=== PATIENT | female | born 1960 | race Caucasian/White ===

== ENCOUNTER 2019-01-23 19:31 | Emergency (ER) | payer OTHER ==
[~2019-01-23] VITALS: Ht 162.6 cm; Wt 111.1 kg
--- OUTSIDE RECORDS SUMMARY | ~2019-01-23 | XMS | Clinical Summary ---
Demographics + + + | Address | [address] | | | [place] [address] | + + + | Home Phone | | + + + | Preferred Language | Unknown | + + + | Marital Status | Unknown | + + + | Advent Affiliation | Unknown | + + + | Race | Unknown | + + + | Ethnic Group | Unknown | + + + Author + + + | Author | [facility] | + + + | Organization | [facility] | + + + | Address | Unknown | + + + | Phone | Unavailable | + + + Support + + + + + | Name | Relationship | Address | Phone | + + + + + | Zahida Dos Santos | ECON | [address] | | | | | [place] | | | | | [address] | | + + + + + Care Team Providers + +------+ + | Care Prorate Clerk Name | Role | Phone | + +------+ + | Lee Anderson | PP | | + +------+ + Allergies + + + + + + | Active Allergy | Reactions | Severity | Noted | Comments | | | | | Date | | + + + + + + | Hydromorphone | Nausea and Vomiting | Low | 06/25/20 | | | | | | 18 | | + + + + + + | Erythromycin | Hives | High | 06/25/20 | | | | | | 18 | | + + + + + + | Gabapentin | Other (See Comments) | Medium | 06/25/20 | Med interaction | | | | | 18 | -causes | | | | | | aggressiveness. | + + + + + + | Morphine And Related | Nausea and Vomiting | Low | 06/25/20 | | | | | | 18 | | + + + + + + | Penicillins | Other (See Comments) | Medium | 06/25/20 | Unknown | | | | | 18 | | + + + + + + | Sulfamethoxazole-Tri | Anaphylaxis | High | 06/25/20 | | | methoprim | | | 18 | | + + + + + + Current Medications + + +-------+---------+------+------+-------+ | Prescription | Sig. | Disp. | Refills | Star | End | Statu | | | | | | t | Date | s | | | | | | Date | | | + + +-------+---------+------+------+-------+ | lurasidone | Take 120 mg by mouth | | | | | Activ | | (LATUDA) 120 MG | daily. T | | | | | e | | tablet | | | | | | | + + +-------+---------+------+------+-------+ | | Take 500 mg by mouth | | | | | Activ | | Vqrthgk-Yexuvxoag-Ed | 2 (two) times | | | | | e | | tamin D (CALCIUM 500 | daily. | | | | | | | PO) | | | | | | | + + +-------+---------+------+------+-------+ | pramipexole | Take 1 mg by mouth 3 | | | | | Activ | | (MIRAPEX) 1 MG | (three) times | | | | | e | | tablet | daily. | | | | | | + + +-------+---------+------+------+-------+ | metFORMIN | Take 500 mg by mouth | | | | | Activ | | (GLUCOPHAGE) 500 MG | 3 (three) times | | | | | e | | tablet | daily. | | | | | | + + +-------+---------+------+------+-------+ | lamoTRIgine | Take 25 mg by mouth | | | | | Activ | | (LAMICTAL) 25 MG | daily. | | | | | e | | tablet | | | | | | | + + +-------+---------+------+------+-------+ | albuterol | Inhale 2 puffs into | | | | | Activ | | (PROVENTIL | the lungs every 4 | | | | | e | | HFA;VENTOLIN HFA) | (four) hours as | | | | | | | 108 (90 Base) | needed for Wheezing. | | | | | | | MCG/ACT inhaler | | | | | | | + + +-------+---------+------+------+-------+ | spironolactone | Take 25 mg by mouth | | | | | Activ | | (ALDACTONE) 25 MG | daily. | | | | | e | | tablet | | | | | | | + + +-------+---------+------+------+-------+ | omeprazole | Take 40 mg by mouth | | | | | Activ | | (PRILOSEC) 40 MG | daily. | | | | | e | | capsule | | | | | | | + + +-------+---------+------+------+-------+ | metoprolol | Take 25 mg by mouth | | | | | Activ | | (TOPROL-XL) 25 MG 24 | daily. | | | | | e | | hr tablet | | | | | | | + + +-------+---------+------+------+-------+ | ergocalciferol | Take 50,000 Units by | | | | | Activ | | (DRISDOL) 30230 | mouth once a week. | | | | | e | | units capsule | | | | | | | + + +-------+---------+------+------+-------+ | methocarbamol | Take 750 mg by mouth | | | | | Activ | | (ROBAXIN) 500 MG | 2 (two) times daily | | | | | e | | tablet | as needed. | | | | | | + + +-------+---------+------+------+-------+ | cyclobenzaprine | Take 10 mg by mouth | | | | | Activ | | (FLEXERIL) 10 MG | 3 (three) times | | | | | e | | tablet | daily as needed for | | | | | | | | Muscle spasms. | | | | | | + + +-------+---------+------+------+-------+ Active Problems + + + | Problem | Noted Date | + + + | CKD (chronic kidney disease), stage III (HCC) | 06/28/2018 | + + + | Essential (primary) hypertension | 06/28/2018 | + + + | Class 1 obesity with alveolar hypoventilation without serious | 06/28/2018 | | comorbidity with body mass index (BMI) of 34.0 to 34.9 in adult | | | (HCC) | | + + + | Type 2 diabetes mellitus with diabetic nephropathy, without | 06/28/2018 | | long-term current use of insulin (HCC) | | + + + | Tobacco abuse | 06/28/2018 | + + + Immunizations + + + + | Name | Dates Previously Given | Next Due | + + + + | Pneumococcal | 08/14/2015 | | | Polysaccharide | | | | 23-valent | | | + + + + Family History + + +------+ + | Medical History | Relation | Name | Comments | + + +------+ + | Cancer | Sister | | Ovarian | + + +------+ + + +------+ + + | Relation | Name | Status | Comments | + +------+ + + | Father | | Alive | | + +------+ + + | Mother | | | | + +------+ + + | Sister | | | | + +------+ + + Social History + +-------+ +--------+------+ | Tobacco Use | Types | Packs/Day | Years | Date | | | | | Used | | + +-------+ +--------+------+ | Current Every Day | | 0.5 | | | | Smoker | | | | | + +-------+ +--------+------+ + + +---------+ + | Alcohol Use | Drinks/We | oz/Week | Comments | | | ek | | | + + +---------+ + | Yes | | | | + + +---------+ + + + + | Sex Assigned at | Date Recorded | | | | + + + | Not on file | | + + + Last Filed Vital Signs + + + + | Vital Sign | Reading | Time Taken | + + + + | Blood Pressure | 90/56 | 09/15/2018 11:45 AM PST | + + + + | Pulse | 75 | 09/15/2018 11:45 AM PST | + + + + | Temperature | - | - | + + + + | Respiratory Rate | - | - | + + + + | Oxygen Saturation | 97% | 09/15/2018 11:45 AM PST | + + + + | Inhaled Oxygen | - | - | | Concentration | | | + + + + | Weight | 121.9 kg (268 lb | 09/15/2018 11:45 AM PST | | | 12.8 oz) | | + + + + | Height | 162.6 cm (5' 4") | 09/15/2018 11:45 AM PST | + + + + | Body Mass Index | 46.14 | 09/15/2018 11:45 AM PST | + + + + Plan of Treatment +--------+---------+ + + + | Date | Type | Specialty | Care Team | Description | +--------+---------+ + + + | 03/25/ | Office | | Junior Henry, | | | 2019 | Visit | | [facility] | | | | | | [address] | | | | | | [place] [id number] | | | | | | [phone] | | | | | | | | +--------+---------+ + + + + + + + + | Health Maintenance | Due Date | Last Done | Comments | + + + + + | Diabetic Eye Exam | | | | | | 0 | | | + + + + + | Diabetic Foot Exam | | | | | | 0 | | | + + + + + | Vaccine: | | | | | Dtap/Tdap/Td (1 - | 9 | | | | Tdap) | | | | + + + + + | Cervical Cancer | | | | | Screening (Pap) | 0 | | | + + + + + | Breast Cancer | | | | | Screening | 0 | | | | (Mammogram) | | | | + + + + + | Colon Cancer | | | | | Screening | 0 | | | | (Colonoscopy) | | | | + + + + + | Vaccine: Zoster (1 | | | | | of 2) | 0 | | | + + + + + | Statin Therapy | | | | | (optimal intensity) | 8 | | | + + + + + | Hemoglobin A1c | | 04/23/2018 | | | | 9 | | | + + + + + | Vaccine: Influenza | | | | | (Season Ended) | 9 | | | + + + + + | Vaccine: | Completed | 08/14/2015 | | | Pneumococcal 19-64 | | | | | (PPSV23 only) Medium | | | | | Risk | | | | + + + + + Results Not on filefrom Last 3 Months Insurance + +--------+ +------+-------+ + | Payer | Benefi | Subscriber | Type | Phone | Address | | | t Plan | ID | | | | | | / | | | | | | | Group | | | | | + +--------+ +------+-------+ + | MEDICAID | [employer] | [id number] | | | [address] | | | [address] | | | | [place], [place] | | | [place] | | | | [phone] | | | 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
--- OUTSIDE RECORDS SUMMARY | ~2019-01-23 | XMS | Clinical Summary ---
Demographics + + + | Address | [address] | | | [place] [address] | + + + | Home Phone | | + + + | Preferred Language | Unknown | + + + | Marital Status | Unknown | + + + | Zoroastrian Affiliation | Unknown | + + + | Race | Unknown | + + + | Ethnic Group | Unknown | + + + Author + + + | Author | [facility] | + + + | Organization | [facility] | + + + | Address | Unknown | + + + | Phone | Unavailable | + + + Support + + + + + | Name | Relationship | Address | Phone | + + + + + | Zahida Dos Santos | ECON | [address] | | | | | [place] | | | | | [address] | | + + + + + Care Team Providers + +------+ + | Care Dehorner Name | Role | Phone | + [...] | | | | Activ | | Dsirsem-Ftplhxscx-Fe | 2 (two) times | | | [...] | | | Activ | | (DRISDOL) [address] | mouth once a week. | | [...] | | | | | [place] [address] | | | | | | [phone] | | | | | | | [...] +------+-------+ + | MEDICAID | [employer] | [id number] | | | [address] | | | N | | | | [place], [place] | | | [place] | | | | [phone] | | | [employer] SUPER[employer]OR | | | | | + +--------+ [...] | 1960 | [phone] | [place] [address] | | | [place] | | | [phone] | | + +--------+ +--------+ + +
[~2019-01-23 19:31] MED LIST: BACLOFEN10 MG PO; BETAMETHASONE D15 G2 TOP; CLINDAMYCIN HC150 MG PO; DOXYCYCLINE HY100 MG PO; LAMICTAL25 MG PO; LEVOTHYROXINE50 MCG PO; METFORMIN HCL500 MG PO; METOPROLOL TART25 MG PO; NORTRIPTYLINE H25 MG PO; OMEPRAZOLE20 MG PO; PRAMIPEXOLE PO; ROBAXIN-750750 MG PO; SPIRONOLACTONE25 MG PO; TRAMADOL HCL50 MG PO; ZANAFLEX4 MG PO; ZOFRAN ODT4 MG PO
--- NOTE | 2019-01-24 06:47 | EKG ---
[facility] [address] [place], [place] [address] Signed Sinus tachycardia Otherwise normal ECG No previous ECGs available Confirmed by LOYD MAYO MD ([id number]) on 01/24/2019 6:46:59 AM Electronically Signed By: LOYD MAYO MD 01/24/19 0647 PATIENT NAME: ZAHIDA DOS SANTOS Electrocardiogram DATE OF : 60 PHYSICIAN: LOYD MAYO MD REPORT #: [id number] REPORT IS CONFIDENTIAL AND NOT TO BE RELEASED WITHOUT AUTHORIZATION
== END 2019-01-23 22:21 | disposition home or self-care (01) ==
LOC: ED 19:31
DX: F15.90 Other stimulant use, unspecified, uncomplicated (principal); E11.9 Type 2 diabetes mellitus without complications; I10 Essential (primary) hypertension; F32.9 Major depressive disorder, single episode, unspecified; F41.9 Anxiety disorder, unspecified; Z88.6 Allergy status to analgesic agent; Z88.5 Allergy status to narcotic agent; Z88.1 Allergy status to other antibiotic agents; Z88.0 Allergy status to penicillin; Z79.899 Other long term (current) drug therapy
CPT/HCPCS: 71045; 80053; 81001; 83735; 84484; 85025; 93005; 93010; 96361; 96374; 99285-25; G0480; J2060; J7030

== ENCOUNTER 2021-03-20 20:43 | Emergency (ER) | payer OTHER ==
[~2021-03-20] VITALS: Ht 162.6 cm; Wt 121.3 kg
[2021-03-20] MEDS ORDERED: CYCLOBENZAPRINE10 MG PO (20:58)
[2021-03-20] MEDS ORDERED: FERROUS SULFAT325 MG PO (20:59)
[2021-03-20] MEDS ORDERED: LATUDA120 MG PO (20:59)
[2021-03-20] MEDS ORDERED: LAMICTAL200 MG PO (20:59)
[2021-03-20] MEDS ORDERED: REQUIP3 MG PO (21:00)
[2021-03-20] MEDS ORDERED: VITAMIN D31250 MC1 PO (21:01)
== END 2021-03-20 22:37 | disposition home or self-care (01) ==
LOC: ED 20:43
DX: G43.909 Migraine, unspecified, not intractable, without status migrainosus (principal); E11.9 Type 2 diabetes mellitus without complications; G47.30 Sleep apnea, unspecified; I10 Essential (primary) hypertension; F17.200 Nicotine dependence, unspecified, uncomplicated; Z88.6 Allergy status to analgesic agent; Z88.5 Allergy status to narcotic agent; Z88.2 Allergy status to sulfonamides; Z88.0 Allergy status to penicillin; Z79.899 Other long term (current) drug therapy; Z79.84 Long term (current) use of oral hypoglycemic drugs
CPT/HCPCS: 96374; 96375; 99283-25; J0780; J1100; J1200; J1885; J7030

== ENCOUNTER 2021-04-29 17:08 | Emergency (ER) | payer OTHER ==
[~2021-04-29] VITALS: Ht 162.6 cm; Wt 124.7 kg
[~2021-04-29 17:08] MED LIST changes: +CYCLOBENZAPRINE10 MG PO; +FERROUS SULFAT325 MG PO; +LAMICTAL200 MG PO; +LATUDA120 MG PO; +REQUIP3 MG PO; +VITAMIN D31250 MC1 PO
[2021-04-29] MEDS ORDERED: CEPHALEXIN500 M1 PO (18:46)
== END 2021-04-29 19:08 | disposition home or self-care (01) ==
LOC: ED 17:08
DX: N39.0 Urinary tract infection, site not specified (principal); E11.9 Type 2 diabetes mellitus without complications; F17.200 Nicotine dependence, unspecified, uncomplicated; Z88.8 Allergy status to other drugs, medicaments and biological substances; Z88.2 Allergy status to sulfonamides; Z88.1 Allergy status to other antibiotic agents; Z88.6 Allergy status to analgesic agent; Z79.899 Other long term (current) drug therapy
CPT/HCPCS: 81001; 99284

== ENCOUNTER 2024-03-20 14:02 | Emergency (ER) | payer OTHER ==
[~2024-03-20] VITALS: Ht 162.6 cm; Wt 125.0 kg
[~2024-03-20 14:02] MED LIST changes: +CEPHALEXIN500 M1 PO; +TRAMADOL HCL100 M2 PO
[2024-03-20] MEDS ORDERED: TRAMADOL HCL50 MG PO (14:45)
[2024-03-20] MEDS ORDERED: TRAMADOL HCL 50 MG TAB PO ONE (14:45)
[2024-03-20 14:54] VITALS: BP 119/66
== END 2024-03-20 14:53 | disposition home or self-care (01) ==
LOC: ED 14:02
DX: M25.562 Pain in left knee (principal); M23.307 Other meniscus derangements, unspecified meniscus, left knee; I10 Essential (primary) hypertension; E11.9 Type 2 diabetes mellitus without complications; L40.9 Psoriasis, unspecified; J44.9 Chronic obstructive pulmonary disease, unspecified; G25.81 Restless legs syndrome; E66.9 Obesity, unspecified; Z68.42 Body mass index [BMI] 45.0-49.9, adult; F17.200 Nicotine dependence, unspecified, uncomplicated; Z88.6 Allergy status to analgesic agent; Z88.5 Allergy status to narcotic agent; Z88.1 Allergy status to other antibiotic agents; Z88.0 Allergy status to penicillin; Z79.84 Long term (current) use of oral hypoglycemic drugs; Z79.899 Other long term (current) drug therapy
CPT/HCPCS: 99283

== ENCOUNTER 2024-07-15 13:54 | Emergency (ER) | payer OTHER ==
[~2024-07-15] VITALS: Ht 162.6 cm; Wt 115.0 kg
[2024-07-15] MEDS ORDERED: TRULICITY1.5 MG/0.5 SQ (14:07)
[2024-07-15] MEDS ORDERED: KETOROLAC TROMETHAMINE 60 MG/2 ML VIAL IM ONE (14:30)
[2024-07-15] MEDS ORDERED: diazePAM 5 MG TAB PO ONE (14:30)
[2024-07-15] MEDS ORDERED: LIDOCAINE HCL 4% 1 EACH PATCH TD ONE (14:30)
[2024-07-15] MEDS ORDERED: LIDODERM1 EACH TOP (16:22)
[2024-07-15] MEDS ORDERED: CYCLOBENZAPRINE10 MG PO (16:22)
[2024-07-15] MEDS ORDERED: KETOROLAC TROME10 MG PO (16:22)
[2024-07-15 16:37] VITALS: BP 156/95
[2024-07-15] MEDS ORDERED: LIDOCAINE PATCH REMOVAL 1 EA TD SCH (21:00)
== END 2024-07-15 16:38 | disposition home or self-care (01) ==
LOC: ED 13:54
DX: M25.552 Pain in left hip (principal); M16.0 Bilateral primary osteoarthritis of hip; E11.9 Type 2 diabetes mellitus without complications; I10 Essential (primary) hypertension; J44.9 Chronic obstructive pulmonary disease, unspecified; F17.200 Nicotine dependence, unspecified, uncomplicated; Z88.5 Allergy status to narcotic agent; Z88.0 Allergy status to penicillin; Z79.899 Other long term (current) drug therapy
CPT/HCPCS: 73502; 96372; 99283-25; A9270; J1885

== ENCOUNTER 2025-02-03 12:22 | Emergency (ER) | payer OTHER ==
[~2025-02-03] VITALS: Ht 162.6 cm; Wt 130.5 kg
[~2025-02-03 12:22] MED LIST changes: +KETOROLAC TROME10 MG PO; +LIDODERM1 EACH TOP; +TRULICITY1.5 MG/0.5 SQ
[2025-02-03] MEDS ORDERED: ONDANSETRON 4 MG TAB ODT SL ONE (13:00)
[2025-02-03] MEDS ORDERED: HYDROCODONE/ACETA 5/325 TAB PO ONE (13:00)
[2025-02-03 13:26] LABS: BILIRUBIN, URINE NEGATIVE (negative); BLOOD/HGB, URINE TRACE-I (Negative); KETONE, URINE NEGATIVE (Negative); LEUK ESTERASE, URINE NEGATIVE (negative); NITRITE, URINE POSITIVE (negative)
[2025-02-03 13:33] LABS: BACTERIA, URINE 3+ /hpf (negative); CASTS, URINE NONE SEEN \\lpf; COLLECTION TYPE, URINE CLEAN CATCH; CRYSTALS, URINE NONE SEEN (0-1+); EPITHELIAL CELLS, URINE SQUAMOUS 1+ /lpf (0-1+); RED BLOOD CELLS, URINE 0-1 /hpf (0-5); REFLEX CULTURE, URINE Yes (No)
[2025-02-03 13:35] LABS: BASOPHILS 0.7 % (0-2); EOSINOPHILS 2.7 % (0-6); HEMATOCRIT 45.9 % (35.0-50.0); LYMPHOCYTES 27.7 % (24-44); MCH 29.4 (27-36); MCHC 34.7 g/dl (30-36); MCV 84.6 fl (81-99); MONOCYTES 6.7 % (0-12); NEUTROPHILS 62.2 % (39-80); PLATELET COUNT 336 K/uL (140-440); RBC 5.43 M/ul (4.3-5.7); RDW 14.7 (10.5-15.0)
[2025-02-03 13:53] LABS: ALBUMIN 3.2 g/dL (3.4-5.0); ALBUMIN/GLOBULIN RATIO 0.74 (1.1-2.4); ANION GAP 11.8 (7-21); BILIRUBIN, TOTAL 0.5 mg/dL (0.2-1.0); BUN/CREATININE RATIO 4.96 (6.0-28.6); CALCIUM 8.5 mg/dL (8.5-10.1); CREATININE, SERUM 1.41 mg/dL (0.55-1.02); POTASSIUM 3.8 mmol/L (3.5-5.1); PROTEIN, TOTAL 7.5 g/dL (6.4-8.2)
[2025-02-03] MEDS ORDERED: predniSONE 20 MG TAB PO ONE (16:30)
[2025-02-03] MEDS ORDERED: PREDNISONE20 MG PO (16:30)
[2025-02-03] MEDS ORDERED: HYDROCODON-ACE1 EA10 PO (16:30)
[2025-02-03] MEDS ORDERED: CEPHALEXIN500 M1 PO (16:30)
[2025-02-03] MEDS ORDERED: CEPHALEXIN MONOHYDRATE 500 MG CAP PO ONE (16:30)
[2025-02-03] MEDS ORDERED: ANORO ELLIPTA1 EACH INH (16:40)
[2025-02-03 16:44] VITALS: BP 145/94
== END 2025-02-03 16:44 | disposition home or self-care (01) ==
LOC: ED 12:22
PROVIDERS: Emergency Medicine
DX: M54.31 Sciatica, right side (principal); N39.0 Urinary tract infection, site not specified; E11.9 Type 2 diabetes mellitus without complications; I10 Essential (primary) hypertension; F17.200 Nicotine dependence, unspecified, uncomplicated
CPT/HCPCS: 36415; 80053; 81001; 83690; 85025; 87077; 87088; 99284; A9270; J7512

== ENCOUNTER 2025-07-20 13:29 | Emergency (ER) | payer MEDICARE, OTHER ==
[~2025-07-20] VITALS: Ht 162.6 cm; Wt 130.5 kg
[~2025-07-20 13:29] MED LIST changes: +ANORO ELLIPTA1 EACH INH; +HYDROCODON-ACE1 EA10 PO; +PREDNISONE20 MG PO
[2025-07-20] MEDS ORDERED: DULOXETINE HCL20 MG PO (15:13)
[2025-07-20 15:20] LABS: BASOPHILS 0.5 % (0.1-1.2); EOSINOPHILS 2.3 % (0.7-5.8); LYMPHOCYTES 27.1 % (19.3-51.7); MCH 28.0 PG (25.6-32.2); MCHC 32.7 g/dL (32.2-35.5); MCV 85.5 fL (79.4-94.8); MONOCYTES 7.6 % (4.7-12.5); NEUTROPHILS 62.3 % (34.0-71.1); RBC 5.25 M/uL (3.93-5.22)
[2025-07-20 15:35] LABS: ALT (SGPT) 21.0 U/L (14-59); AST (SGOT) 20.0 U/L (15-37); GLOMERULAR FILTRATION RATE,EST 50.0 mL/min (>60); PROTEIN, TOTAL 7.0 g/dL (6.4-8.2); UREA NITROGEN 6.0 mg/dL (7-18)
[2025-07-20 15:46] LABS: BLOOD/HGB, URINE TRACE-I (Negative); KETONE, URINE NEGATIVE (Negative); LEUK ESTERASE, URINE NEGATIVE (negative); NITRITE, URINE NEGATIVE (negative)
[2025-07-20 15:51] LABS: BACTERIA, URINE 1+ /hpf (negative); CASTS, URINE NONE SEEN \\lpf; CRYSTALS, URINE NONE SEEN (0-1+); EPITHELIAL CELLS, URINE SQUAMOUS 1+ /lpf (0-1+); REFLEX CULTURE, URINE Yes (No)
[2025-07-20 18:25] VITALS: BP 120/106
== END 2025-07-20 18:30 | disposition home or self-care (01) ==
LOC: ED 13:29
PROVIDERS: Emergency Medicine
DX: N93.9 Abnormal uterine and vaginal bleeding, unspecified (principal); I10 Essential (primary) hypertension; E11.9 Type 2 diabetes mellitus without complications; J44.9 Chronic obstructive pulmonary disease, unspecified; F17.200 Nicotine dependence, unspecified, uncomplicated; Z88.2 Allergy status to sulfonamides; Z88.1 Allergy status to other antibiotic agents; Z88.0 Allergy status to penicillin; Z88.5 Allergy status to narcotic agent; Z79.84 Long term (current) use of oral hypoglycemic drugs; Z79.899 Other long term (current) drug therapy
CPT/HCPCS: 36415; 76856; 80053; 81001; 85025; 87088; 99284-25

== ENCOUNTER 2025-09-13 20:29 | Emergency (ER) | payer OTHER, MEDICARE ==
[~2025-09-13] VITALS: Ht 162.6 cm; Wt 130.5 kg
[~2025-09-13 20:29] MED LIST changes: +DULOXETINE HCL20 MG PO
[2025-09-14 02:19] VITALS: BP 156/99
== END 2025-09-14 02:21 | disposition home or self-care (01) ==
LOC: ED 20:29
DX: S61.300A Unspecified open wound of right index finger with damage to nail, initial encounter (principal); I10 Essential (primary) hypertension; E11.9 Type 2 diabetes mellitus without complications; J44.9 Chronic obstructive pulmonary disease, unspecified; F17.200 Nicotine dependence, unspecified, uncomplicated; Z88.2 Allergy status to sulfonamides; Z88.8 Allergy status to other drugs, medicaments and biological substances; Z88.5 Allergy status to narcotic agent; W54.1XXA Struck by dog, initial encounter
CPT/HCPCS: 11730; 73140; 99283